=== PATIENT | female | born 1975 | race Hispanic/Latino ===

== ENCOUNTER 2016-06-06 07:17 | Inpatient (IN) | payer MEDICAID ==
[~2016-06-06] VITALS: Ht 154.9 cm; Wt 81.2 kg
[2016-06-06] MEDS ORDERED: Ondansetron 2 mg/mL 2 mL Inj IVPUSH ONE ×2 (07:18→12:30)
[2016-06-06] MEDS ORDERED: Lactated Ringer's 1,000 ML IV ONE (07:18)
[2016-06-06] MEDS ORDERED: Oxytocin 10 Unit/mL Inj IV ONE (07:18)
[2016-06-06] MEDS ORDERED: Lactated Ringer's 1,000 ML IV SCH ×2 (07:35→11:37)
[2016-06-06] MEDS ORDERED: Carboprost 250 mCg/mL Inj IM PRN ×2 (07:35→11:40)
[2016-06-06] MEDS ORDERED: Hemorrhage Kit, Post Partum XX ONE ×2 (07:35→11:40)
[2016-06-06] MEDS ORDERED: CeFAZolin Inj 2 GM in IV Premix 1 EACH IV ONE (07:35)
[2016-06-06] MEDS ORDERED: Methylergonovine 0.2 mg/mL Inj IM PRN ×2 (07:35→11:40)
[2016-06-06] MEDS ORDERED: Sodium Citrate-Citric Acid 15 mL Solution PO SCH (07:35)
[2016-06-06] MEDS ORDERED: Oxytocin 10 Unit/mL Inj IM PRN ×2 (07:35→11:40)
[2016-06-06 08:24] LABS: Mean Corpuscular Hemoglobin 29.5 pg (27.0-35.0); Mean Corpuscular Volume 88.6 fL (81-100)
[2016-06-06] MEDS ORDERED: Oxytocin 10 Unit/mL Inj ONE ×2 (09:00→19:26)
[2016-06-06] MEDS ORDERED: Phenylephrine/NS 100 mCg/mL 10 mL Syringe IVPUSH ONE ×2 (09:00→19:26)
[2016-06-06] MEDS ORDERED: Ondansetron 2 mg/mL 2 mL Inj ONE ×2 (09:00→19:26)
[2016-06-06] MEDS ORDERED: EPHEDrine/NS 5 mg/mL 5 mL Syringe ONE ×2 (09:00→19:26)
[2016-06-06] MEDS ORDERED: EPHEDrine Sulfate 50 mg/mL Inj IVPUSH PRN (10:05)
[2016-06-06] MEDS ORDERED: fentaNYL-PF 50 mCg/mL 2 mL Inj IVPUSH PRN (10:05)
[2016-06-06] MEDS ORDERED: Atropine 0.4 mg/mL Inj IV PRN (10:05)
--- NOTE | 2016-06-06 10:22 | HP ---
[address] [address] HISTORY AND PHYSICAL PATIENT: ROSS MATA : 1975 MR#: [id number] ADMIT: 06/06/2016 JOB ID: [id number] CHIEF COMPLAINT: The patient presented for scheduled repeat section and tubal ligation. HISTORY OF PRESENTING ILLNESS: This is a 40-year-old 6, para 3-0-2-3 at 39 weeks and five days with expected date of delivery of June 09, 2016 dated by a 33 week ultrasound for an unknown last menstrual period. The patient presented today for a scheduled repeat section. The patient denies any complaints. The patient confirmed good movement. No vaginal bleeding. No loss of fluid and no contractions. complicated with: 1. Late transfer of care from [facility] at 32 weeks. 2. History of Zika virus exposure, labs drawn and negative (copy of result is in paper chart) 3. Advanced maternal age. 4. deliveries x3. 5. Multiparity, desires permanent sterilization. Sterilization consent was signed May 01, 2016. REVIEW OF SYSTEM: Comprehensive review of system is negative except for the items mentioned in the history of presenting illness. PAST MEDICAL HISTORY: Noncontributory. PAST SURGICAL HISTORY: 1. Left ankle surgery. 2. deliveries x3. 3. Dilatation and curettage x1. PAST OBSTETRIC HISTORY: 1. First was in 1995. Term delivery via section under epidural anesthesia. Outcome is a female , 3800 g. Indication for section was arrest of dilatation. 2. The second was 2000. Term delivery via repeat section. Outcome female 3600 g with no complications. 3. Third was 2002. Term delivery via repeat section. Outcome female infant 3600 g with no complications. All three sections were done at [facility]. 4. Fourth in 2012 was a spontaneous at approximately eight weeks with no D and C or medication needed. 5. Fifth was 2013, a spontaneous at eight weeks with need for D and C. 6. Sixth is the current . GYNECOLOGIC HISTORY: Last menstrual period unknown. Last Pap smear May 03, 2016 within normal limits and HPV negative. Denies history of sexually transmitted infections. Chlamydia and gonorrhea screen was negative April 22, 2016. FAMILY HISTORY: Mother is diabetic and has hypertension. Father secondary to [place] at age 53. Siblings healthy. Children healthy. SOCIAL HISTORY: Denies alcohol or illicit drug abuse. MEDICATIONS: vitamins. PHYSICAL EXAMINATION: Vital signs: Blood pressure 120/76, heart rate 82, heart tones baseline 135, moderate variability, positive accelerations, no decelerations. Category 1 tracing. Contractions irregular every 9-15 minutes. General: Alert, oriented to time, place and person. Head: Normocephalic, atraumatic. Neck: Supple. Chest: Equal air entry bilaterally. No added sounds. Cardiovascular: S1 plus S2 plus 0. Abdomen: Gravid. No tenderness. Lower extremities: No edema. Positive deep tendon reflexes +2 bilaterally. LABORATORIES: labs O positive, rubella immune, RPR nonreactive, hepatitis B surface antigen nonreactive, HIV non reactive, antibody screening negative. Culture within normal limits. April 22, 2016. Diabetes screen negative April 22, 2016 at 32 weeks. Pap smear within normal limits May 03, 2016 and HPV negative. Chlamydia and gonorrhea screening negative April 22, 2016. GBS screening negative on May 23, 2016. Today's labs: White blood cells 7.8, red blood cells 4.4, hemoglobin 13, hematocrit 39%, platelets 191. Type and screen pending. DIAGNOSTIC: 1. Ultrasound on April 23, 2016. Estimated gestational age was 33 weeks plus two days with MADDISON of June 09, 2016. 2. Repeat ultrasound at the [facility] on May 01, 2016, MADDISON was June 06, 2016. Final MADDISON is June 09, 2016. Placenta anterior fundal with no abnormal placentation. 3. Ultrasound on May 28, 2016: Estimated weight 3485 g at 60th percentile from the MADDISON of June 09, 2016. ASSESSMENT: This is a 40-year-old 6, para 3-0-2-3 at 39 weeks and 5 days based on MADDISON of June 09, 2016 x33 week ultrasound with history of previous three sections. Desires repeat section and multiparity and desires sterilization. Sterilization consent was signed May 01, 2016. PLAN: Risks, benefits and alternatives of repeat section were discussed with the patient in detail. Risks including and not limited to, risk of infection, bleeding, injury to other organs, risk of anesthesia, risk of blood transfusions and risk of infant laceration. The patient desires to proceed with repeat section as scheduled. Tubal ligation risks, benefits and alternatives were reviewed with the patient in details which include and not limited to, tubal ligation is permanent procedure, risk of failure is 1 in 200 with risk of ectopic in third of the failed cases. Alternatives including LARC and male sterilization were also discussed. All questions were answered. Potential difficulty of a tubal ligation was also explained secondary to previous section and possible adhesions was also discussed with the patient. All questions were answered. Will proceed with the procedure as planned. Snow Maker was present for the H&P and consenting. EDNA
[2016-06-06] MEDS ORDERED: Sodium Chloride LOK Flush 10 mL Syringe IVFLUSH PRN (11:40)
[2016-06-06] MEDS ORDERED: LANOlin HPA 7 Gm Ointment TOPICAL PRN (11:40)
[2016-06-06] MEDS ORDERED: hydrOXYzine Pamoate 25 mg Capsule PO PRN (11:40)
[2016-06-06] MEDS ORDERED: Oxytocin 30 Units/500 mL LR 30 UNITS in IV Premix 1 EACH IV PRN ×2 (11:40→12:35)
--- NOTE | 2016-06-06 12:20 | PCM.HPANE ---
Patient Data Date of Service: Jun 06, 2016 (08) Surgeon Admitting Provider:Roxanne Dinh MD Attending Provider:Roxanne Dinh MD Primary Care Physician:Alla Obando MD Other Provider:Mona Soni Anesthesia Reason for Visit repeat repeat Ht/WT & BMI Height (Feet): 5 Height (Inches): 1 Body Mass Index Allergies Coded Allergies: No Known Allergies (Unverified Allergy, Unknown, 08/26/14) Past Anesthesia History Anesthesia History: Denies:: Abnormal Airway, Anesthesia Reactions, Fam Anesthesia Reaction, Fam Malignant Hypertherm, Malignant Hyperthermia MRSA MRSA: No Medications Hypertension Medication: No Home Meds Incl Beta Enrrique: No History History of ENT Problems?: No Teeth Condition: Tooth Decay Hx of Heart Problems?: No Cardiovascular History: Denies:: Chest Pain Other Cardiac History: no sob Hx of Respiratory Problem?: No Hx Neurologic Problems?: No Neurological History: Denies:: CVA Peripheral Neuropathy Seizures Hx of GI Problems?: No Gastrointestinal History: Denies:: Gastroesphageal Reflux Hx of Problems?: No Genitourinary History: Denies:: HX of Hemodialysis HX of Peritoneal Dialysis: No Female Hx: Positive for:: Currently () Skin History: Denies:: History Skin Disorders? Pressure Ulcers Hx Musculoskeletal Problems?: No Hx of Psycho/Social Problems?: No Hx Surgeries?: Yes ( section due to failure to progress - no complications - vertical incision) Hx Any Other Health Problems?: No Hx Diabetes: No Hx Alcohol Use: NoHx Substance Use: No Smoking Status: Never Smoker Have You Smoked inLast 12 mo: No Stop/Bang Treated for Sleep Apnea?: No Do You Have a CPAP Machine?: No S-Snoring: Do You Snore Loudly: No T-Tired: feel tired, fatigued: No O-Obsered: Observed not breath: No P-Blood Pressure: treated: No B- Body Mass Index > 35 kg/m2: No A- Age over 50: No N- Neck Large Circumference: No G- Gender Male: No LUPE Risk Assessment: Low Risk, <3 Yes Risk Assessment Category Category 1A: Patient has history of documented sleep apnea, and HAS NOT received any narcotic, sedative or anesthesia administration during this stay. Category 1B: Patient has history of documented sleep apnea, and HAS received any narcotic , sedative or anesthesia administration during this stay Category 2: Patient has SUSPECTED Obstructive Sleep Apnea, and HAS received any narcotic , sedative or anesthesia administration during this stay. Category 3: Patient has SUSPECTED Obstructive Sleep Apnea and HAS NOT received narcotic, sedative or anesthesia administration during this stay. Category 4: Outpatient in Procedural Areas with known sleep apnea or who screen positive for High Risk via the STOP/BANG questionnaire. Exam Exam General Appearance: Alert, Oriented X3, Cooperative, No Acute Distress HEENT/AIRWAY: MP 2, Neck Movement (FROM), Mouth Opening (>3), Other (TMD3) Lungs: Clear to Auscultation Heart: Exam Unremarkable, Regular Rate/Rhythm, Normal S1, Normal S2, No Murmurs /Rubs/Gallops Additional Information Back no signs of infection Meds/Labs/Diagnostics Admission Meds Current Medications Lactated Ringer's (Lr) 1,000 ml @ 125 mls/hr Q8H IV Last administered on t 08:37; Start 06/06/16 at 07:35; Stop 06/06/16 at 15:34 Labs Test 06/06/16 08:00 White Blood Count 7.8th/mm3 (3.8-10.1) Red Blood Count 4.40mil/mm3 (3.90-5.20) Hemoglobin 13.0g/dL (12.0-15.6) Hematocrit 39.0% (35.0-46.0) Mean Corpuscular Volume 88.6fL (81-100) Mean Corpuscular Hemoglobin 29.5pg (27.0-35.0) Mean Corpuscular Hemoglobin Concent 33.3% (32.0-37.0) Red Cell Distribution Width 14.6% (12.3-15.4) Platelet Count 191bil/L (150-400) Plan Impression Patient chart reviewed, patient interviewed and anesthestic plan with risks, benefits, and alternatives discussed, and informed consent obtained. ASA Physical Status: ASA2 Mod Systemic Disease Anesthetic Plan: SAB Bene/Risks/Altern/Consents: Yes HP Complete Prior to Induction: Yes Papito Patel MD Jun 06, 2016 12:20
--- NOTE | 2016-06-06 12:29 | PCM.ANEP1 ---
Post Anesthesia Phase 1 PACU Phase 1 Assessment Date of Service: Jun 06, 2016 (0830) Anesthetic Administered: SAB Level of Alertness: Awake, talking WEBB's with Equal Strength: No (residual motor/sensory blockade in expected distribution) Pain: No Pain Scale Score: 0 Nausea or Vomiting: No Oxygen Delivery: Room Air Lungs: Clear to Auscultation Papito Patel MD Jun 06, 2016 12:29
[2016-06-06] MEDS ORDERED: Promethazine 12.5 mg/50 mL-NS 12.5 MG in IV Premix 1 EACH IV ONE (12:30)
[2016-06-06] MEDS ORDERED: Ondansetron 8 mg ODT Tablet PO PRN (12:30)
--- NOTE | 2016-06-06 12:30 | PCM.ANEP2 ---
Post Anesthesia Evaluation ASA/CMS Post Anesthesia VS in Patient's Normal Range?: Yes Resp Stable; Airway Patent?: Yes CV Function & Hydration Stable: Yes Mental Status Recovered?: Yes Pain control Satisfactory?: Yes N/V Control Satisfactory?: Yes Papito Patel MD Jun 06, 2016 12:29
[2016-06-06] MEDS: Acetaminophen IV 1,000 MG in IV Premix 1 EACH IV PRN ×2 (12:50→19:15)
[2016-06-06] MEDS ORDERED: Promethazine Inj 12.5 MG in 0.9% Sodium Chloride 50 ML IV ONE (13:30)
--- NOTE | 2016-06-06 14:10 | OP ---
[address] [address] OPERATIVE REPORT PATIENT: ROSS MATA : 1975 MR#: [id number] ADMIT: 06/06/2016 JOB ID: [id number] DATE OF SURGERY: 06/06/2016 PREOPERATIVE DIAGNOSIS(ES): 1. Term intrauterine at 39 weeks and 5 days gestation. 2. Previous three deliveries. 3. Multiparity, desires permanent sterilization. POSTOPERATIVE DIAGNOSIS(ES): 1. Term intrauterine at 39 weeks and 5 days gestation. 2. Previous three deliveries. 3. Multiparity, desires permanent sterilization. PROCEDURES: 1. Repeat low transverse section. 2. Bilateral tubal ligation with partial salpingectomy. COMPLICATIONS: None. IMPLANTS: None. SURGEON: Alla Obando MD MASCARA MOLDER: Roxanne Dinh MD (certified surgical assistant was needed for retractions and exposure and safe delivery of the infant). ESTIMATED BLOOD LOSS: 700 mL. IV FLUIDS: 1600 mL crystalloid fluid. URINE OUTPUT: 150 mL with some blood stained urine at the end of the procedure. SPECIMENS: Right and left segments of fallopian tubes. FINDINGS: Uterus was enlarged with irregular surface possibly secondary to multiple intrauterine fibroids. No distinct fibroid was palpable externally except one small (1 cm) submucosal fibroid was palpable in the intrauterine cavity. Normal tubes and ovaries. Clear amniotic fluid. Male infant delivered in cephalic presentation. Weight 3591 g ,equivalent to 7 pounds 15 ounces. Apgars 9 at one minute and 9 at five minutes. There was no nuchal cord and amniotic fluid was clear. INDICATION: This is a 40 years old 6, para 3-0-2-3, with a history of previous three deliveries presented at 39 weeks and 5 days for a scheduled repeat section. Expected date of delivery is June 09, 2016 dated by 33 week ultrasound that confirmed by 34 week ultrasound. The patient also interested in tubal ligation and sterilization. Informed consent was signed at the office on May 01, 2016. Patient was counseled again prior to the procedure, regarding risks, benefits and alternatives for female sterilization, LARC and male sterilization. All the questions were answered. The patient desires to proceed with a repeat delivery and bilateral tubal ligation as planned. PROCEDURE: After informed consent was obtained, the patient was taken to the operation room. She was placed under adequate spinal anesthesia, then she was placed in dorsal supine position with left lateral tilt. She was prepped and draped in the usual sterile fashion for abdominal procedure. A Pfannenstiel skin incision was made at the level of two fingerbreadths above the symphysis pubis. Prior to the procedure the type of skin incision was discussed with the patient. The patient elected to go with a low transverse incision and not to go through the previous low vertical incision that she had for the previous three sections. The skin incision was carried down to the fascia. The initial fascial incision was made with a scalpel and was extended bilaterally and curvilinear with curved Mayos. The inferior aspect of the fascial layer was elevated on either side of the midline with Richar clamps and the rectus muscles were dissected off with blunt and sharp dissection. Attention was turned to the superior aspect of the fascia where it was grasped in either side of the midline with Richar clamps, and was dissected off the rectus muscles with blunt and sharp dissection. The rectus muscles were in the midline and the peritoneum was entered bluntly and area cleared of vascularity. The peritoneal incision was extended with Metzenbaum scissors. Then with bilateral gentle traction bladder blade was placed and a bladder flap was created and the bladder blade was repositioned to protect the bladder. A low transverse uterine incision was made with a scalpel and was extended bilaterally with bandage scissors guided by the surgeon's finger. Then amniotomy was performed with Allis clamps. Clear fluid was noted. A cephalic presented was delivered with the assistance of fundal pressure. No nuchal cord was noted. Delayed cord clamp was performed after 1 minute. Cord blood was collected for gases. The was handed off to the awaiting ICU team. The placenta was delivered manually. Uterus was exteriorized, cleared of any remaining clots and debris. The uterine incision was closed with 0-Vicryl in a running, interlocking fashion. A second imbricating layer of 0 Monocryl was made with good hemostasis. At the upper edge of the incision in the right side, a small hematoma was noted. A [id number] stitch was placed around and through the hematoma with good hemostasis. The attention was turned to the tubal ligation part of the procedure where the right tube was identified and traced to the fimbria. An area clear of vascularity in the mesosalpinx was identified and a window was created with Bovie cautery. Then, the middle segment of the tube was double ligated at either end of approximately 4 cm length of the middle segment of the tube that was excised. The remaining stump of the tube was cauterized with Bovie cautery for hemostasis. Attention was turned to the left fallopian tube. An area clear of vascularity in the middle segment of the tube was identified and a window was created with Bovie cautery. The 4 cm middle segment of the tube was double ligated and was excised. The remaining stump of the tube was cauterized with Bovie cautery for hemostasis. Hemostasis was ensured bilaterally. The posterior cul-de-sac was cleared of any remaining clots and debris, then was thoroughly irrigated. The uterus was placed back into the peritoneal cavity. The lateral gutters were as examined and cleared of any remaining clots and debris. Hemostasis was ensured in both fallopian tubes. The uterine incision was examined. Some superficial bleeding serosa was noted that was cauterized. Hemostasis was ensured. Then, the rectus muscles were approximated in the midline with simple interrupted stitches using 2-0 chromic. The fascia was closed with 0-Vicryl in a running fashion. The subcutaneous layer was approximated with simple interrupted stitches of 2-0 chromic. The skin was closed with 4-0 Vicryl in subcuticular fashion. Steri-Strips were applied followed by a bandage. All instruments, needles and sponge counts were correct x2. The patient and were transferred to the room for recovery. Alla Louie MD was present and scrubbed for the entire procedure. EDNA
[2016-06-06] MEDS ORDERED: Morphine PF 1 mg/mL 10 mL Inj ONE (19:26)
[2016-06-06] MEDS: Dextrose 5% Lactated Ringer's 1,000 ML IV SCH (22:47)
[2016-06-07] MEDS: Dextrose 5% Lactated Ringer's 1,000 ML IV SCH (04:25)
[2016-06-07] MEDS: Acetaminophen IV 1,000 MG in IV Premix 1 EACH IV PRN (05:51)
[2016-06-07 07:54] LABS: Mean Corpuscular Hemoglobin 29.6 pg (27.0-35.0); Mean Corpuscular Volume 91.2 fL (81-100)
--- NOTE | 2016-06-07 09:27 | PCM.PNOBPP ---
Subjective Date of Service Jun 07, 2016 Post : Repeat [place]re[place] Delivery Subjective This is a 40-year-old 6, para 4-0-2-4 post day 1 after repeat section and tubal ligation. was complicated by late transfer of care from [facility] at 32 weeks, history of Zika virus exposure with negative labs, advanced maternal age. section and tubal ligation were without complication there as minimal blood tinged urine after surgery. Patient received IV fluids overnight due to low urine output. Urine output has improved and urine is no longer blood tinged. Pain is currently well controlled with IV Tylenol will switch to PO pain medications. Patient out of bed this morning without difficulty. Lochia: Normal Pain Management: Good Pain Control (currently with IV tylenol. Will switch to oral) Gastrointestinal: Passing Flatus Postop Activity: Ambulating in Room Only Labs RPR nonreactive, hepatitis B surface antigen nonreactive, HIV non reactive, antibody screening negative. Culture within normal limits. Diabetes screen negative April 22, 2016 at 32 weeks. Pap smear within normal limits May 03, 2016 and HPV negative. Chlamydia and gonorrhea screening negative March. Group B Strep Results: Negative Rubella: Immune Blood Type: O RH Type: Positive Labs Laboratory Tests 06/07/16 07:35: Exam Vital Signs Vital Signs: VS reviewed, stable Exam Abdomen: Uterus is, Fundus firm Perineum: Intact : UOP has been (low. Improved this morning with 150 mls in last 2 hrs. ), Fernandes catheter Extremities: Edema 1+ Lungs: Clear to Auscultation, Normal Air Movement Heart: Regular Rate/Rhythm, Normal S1, Normal S2 General: Alert, Oriented X3, Cooperative Surgical Wound : Wound Location/Description Low transverse incision Incision General Appearence: Steri Strips, Intact, Well Approximated, No Discharge OB Post Assessment/Plan Assessment 1. 40-year-old 6, para 4-0-2-4 post day 1 after repeat section and tubal ligation. 2. Advanced maternal age. 3. Low urine output, improving. Pain Management: Currently with IV Tylenol will switch to PO pain medication (Percocet). Pain Evaluation: Adequate Pain Control Post plan: Continue routine post care Plan: 1. Continue routine post- care. 2. Patient to be up and ambulating. 3. Saline lock IV and continue to monitor UOP closely. 4. BMP pending to evaluate kidney function. 5. IV Tylenol stopped. Will use Percocet for pain control. 6. General Diet as tolerated. 7. Discharge home tomorrow pending UOP and kidney function. Attending Statement The patient was seen and examined together with Dr. Marcin Beasley on 2016 and I agree with the history, exam and plan as outlined in the note above. MARCIN BEASLEY DO Jun 07, 2016 07:55 Rebekah Meza MD Jun 09, 2016 09:44
[2016-06-07] MEDS: Ascorbic Acid 500 mg Tablet PO SCH (12:30)
[2016-06-07] MEDS: oxyCODONE-Acetamin 5-325 mg Tablet PO PRN ×3 (12:32→22:50)
[2016-06-07] MEDS: 0.9% Sodium Chloride 1,000 ML IV SCH ×2 (18:30→20:15)
--- NOTE | 2016-06-07 21:34 | NUR ---
Shift note Patient up and about in room today. She had lots of visitors, so she did not walk the halls, but reports that her pain is well controlled. Voiding independently, independent with care of baby. Vitals stable, incision clean and dry, steri strips intact. Breast feeding going well per patient report.
[2016-06-08] MEDS: oxyCODONE-Acetamin 5-325 mg Tablet PO PRN ×3 (06:50→16:17)
--- NOTE | 2016-06-08 09:16 | PCM.DC.OB ---
Obstetrical Discharge Summary Date of Service Jun 08, 2016 Date of hospital admission Jun 06, 2016 at 07:17 Date of Discharge: Jun 08, 2016 Providers Admitting Physician: Roxanne Dinh MD Primary Care Physician: Joe Hodge MD Attending Physician: Joe Hodge MD Diagnosis at Time of Discharge 1. Status post Repeat low transverse section and bilateral tubal ligation with partial salpingectomy on 06/06/2016. 2. Post anemia. Problems: Hospital Course: DELIVERY DISCHARGE SUMMARY his is a 40-year-old 6, now para 4-0-2-4 1. Status post Repeat low transverse section and bilateral tubal ligation with partial salpingectomy. on 06/06/2016. 2. Post anemia. COMPLICATED WITH: 1. Late transfer of care from [facility] at 32 weeks. 2. History of Zika virus exposure, labs drawn and negative (copy of result is in paper chart) 3. Advanced maternal age. 4. deliveries x3. 5. Multiparity, desires permanent sterilization. Sterilization consent was signed May 01, 2016. OUTCOME: Male delivered in cephalic presentation. Weight 3591 g , equivalent to 7 pounds 15 ounces. Apgars 9 at one minute and 9 at five minutes. There was no nuchal cord and amniotic fluid was clear. DISCHARGE DAY EXAM: Postoperative day number 2, patient is ambulating, tolerating regular diet without nausea or vomiting and voiding without difficulty. Pain was well controlled. No chest pain, no headache or change in vision. VS: BP 107/68 HR 83 Respirations 16 SaO2 98 on RA Temp 36.2 General: Alert, Oriented X3 Lungs: Clear to Auscultation, Clear to Percussion Heart: Regular Rate/Rhythm, Normal S1, Normal S2 Abdomen: Fundus firm Surgical Wound : Incision General Appearance: Steri Strips, Sutures, Intact, Well Approximated, Incision Healing, No Erythemia, No Discharge Extremities: No tenderness/swelling, Edema 1+ Lochia: normal. LABS: Laboratory Tests 72 Hours Test 06/06/16 08:00 06/07/16 07:35 06/07/16 10:45 06/08/16 09:37 White Blood Count 7.8th/mm3 (3.8-10.1) 11.0th/mm3 (3.8-10.1) 9.8th/mm3 (3.8-10.1) Red Blood Count 4.40mil/mm3 (3.90-5.20) 3.18mil/mm3 (3.90-5.20) 3.32mil/mm3 (3.90-5.20) Hemoglobin 13.0g/dL (12.0-15.6) 9.4g/dL (12.0-15.6) 9.9g/dL (12.0-15.6) Hematocrit 39.0% (35.0-46.0) 29.0% (35.0-46.0) 30.5% (35.0-46.0) Mean Corpuscular Volume 88.6fL (81-100) 91.2fL (81-100) 91.9fL (81-100) Mean Corpuscular Hemoglobin 29.5pg (27.0-35.0) 29.6pg (27.0-35.0) 29.8pg (27.0-35.0) Mean Corpuscular Hemoglobin Concent 33.3% (32.0-37.0) 32.4% (32.0-37.0) 32.5% (32.0-37.0) Red Cell Distribution Width 14.6% (12.3-15.4) 14.6% (12.3-15.4) 14.9% (12.3-15.4) Platelet Count 191bil/L (150-400) 158bil/L (150-400) 174bil/L (150-400) Sodium Level 138mEq/L (134-144) 139mEq/L (134-144) Potassium Level 3.8mEq/L (3.5-5.2) 3.7mEq/L (3.5-5.2) Chloride Level 104mEq/L (97-108) 103mEq/L (97-108) Carbon Dioxide Level 22mmol/L (18-29) 23mmol/L (18-29) Blood Urea Nitrogen 5mg/dL (6-24) 7mg/dL (6-24) Creatinine 0.38mg/dL (0.57-1.00) 0.38mg/dL (0.57-1.00) Estimat Glomerular Filtration Rate 267mL/min (>59) 267mL/min (>59) Glucose Level 109mg/dL (60-99) 89mg/dL (60-99) Calcium Level 7.8mg/dL (8.5-10.1) 7.6mg/dL (8.5-10.1) labs: O positive, rubella immune, RPR nonreactive, hepatitis B surface antigen nonreactive, HIV non reactive, antibody screening negative. Culture within normal limits. April 22, 2016. Diabetes screen negative April 22, 2016 at 32 weeks. Pap smear within normal limits May 03, 2016 and HPV negative. Chlamydia and gonorrhea screening negative April 22, 2016. GBS screening negative on May 23, 2016. Disposition: home. Discharge Condition: stable. Diet Discharge Diet: No restrictions Activity Discharge Activity-General: Pelvic Rest for 6 weeks (no sex, no tampon and no douching), Balance rest and activity, No lifting >10 pounds for 4-6 weeks Dressing and Incisional Care Hygiene: May shower, Wash incision with soap & water (then keep incision dry ) Follow Up Plan Follow-up Provider (F9): Joe Hodge MD Follow-up appointment: Weeks (Two) Call your provider for: Fever or Chills, Shortness of breath, Heavy vaginal bleeding, Heavy bleeding, Epigastric pain, Excessive constipation, Vaginal discomfort, Red painful breasts, Other (leg swelling, pain, nausea and vomiting , headache or change in vision.) ([Lanolin]) 2 APPLIC/GM OINT 1 APPLIC TOPICAL DIRECTED PRN PRN for breast care Prescribed by: JOE HODGE MD ([Ascorbic Acid]) 500 MG TABLET 500 MG PO daily Prescribed by: JOE HODGE MD Docusate Sodium (Colace) 100 Mg Capsule 100 MG PO BID PRN PRN For Constipation Prescribed by: JOE HODGE MD Ferrous Sulfate (Feosol) 325 Mg Tablet 325 MG PO daily Prescribed by: JOE HODGE MD Ibuprofen (Ibuprofen) 600 Mg Tablet 600 MG PO QID PRN PRN For Pain Prescribed by: JOE HODGE MD oxyCODONE-Acetaminophen 5-325 mg (oxyCODONE-Acetaminophen 5-325 mg) 1 Each Tablet 1-2 TAB PO Q4H PRN PRN For Pain Prescribed by: MD Topher JAMES Omaima A MD Jun 07, 2016 19:03
--- NOTE | 2016-06-08 09:16 | PCM.DIOB ---
Obstetrical Disch Instruction Date of Service: Jun 08, 2016 Dates of Hospitalization Date of Hospital Admission Jun 06, 2016 at 07:17 Providers Admitting Physician: Roxanne Dinh MD Primary Care Physician: Alla Obando MD Attending Physician: Alla Obando MD Discharge Diagnosis Discharge Diagnosis 1. Status post Repeat low transverse section and bilateral tubal ligation with partial salpingectomy. on 06/06/2016. 2. Post anemia. Post Operative diagnosis Disposition: home. Discharge Condition: stable. Diet Discharge Diet: No restrictions Activity Discharge Activity-General: Pelvic Rest for 6 weeks (no sex, no tampon and no douching), Balance rest and activity, No lifting >10 pounds for 4-6 weeks Dressing and Incisional Care Hygiene: May shower, Wash incision with soap & water (then keep incision dry ) Follow Up Plan Follow-up Provider (F9): Alla Obando MD Follow-up appointment: Weeks (Two) Call your provider for: Fever or Chills, Shortness of breath, Heavy vaginal bleeding, Heavy bleeding, Epigastric pain, Excessive constipation, Vaginal discomfort, Red painful breasts, Other (leg swelling, pain, nausea and vomiting , headache or change in vision.) Problems: Alla Obando MD Jun 07, 2016 19:02
[2016-06-08] MEDS ORDERED: Ascorbic Acid PO (09:21)
[2016-06-08] MEDS ORDERED: Lanolin TOPICAL (09:21)
[2016-06-08] MEDS ORDERED: DOCU-41 PO (09:22)
[2016-06-08] MEDS ORDERED: FERR-74 PO (09:22)
[2016-06-08] MEDS ORDERED: OXYC1TAB24 PO (09:22)
[2016-06-08] MEDS: Ascorbic Acid 500 mg Tablet PO SCH (09:27)
[2016-06-08] MEDS ORDERED: IBUP-1827 PO (09:31)
[2016-06-08 09:45] LABS: Mean Corpuscular Hemoglobin 29.8 pg (27.0-35.0); Mean Corpuscular Volume 91.9 fL (81-100)
--- NOTE | 2016-06-08 11:54 | PCM.PNOBPP ---
Subjective Date of Service Jun 08, 2016 Post : Repeat Ceserean Delivery Subjective Postoperative day number 2, patient is ambulating, tolerating regular diet without nausea or vomiting and voiding without difficulty. Pain was well controlled. No chest pain, no headache or change in vision. C/O of chest tightness. VS: BP 95/57 HR 78 Respirations 18 SaO2 96% on RA Temp 36.7 General: Alert, Oriented X3 Lungs: Clear to Auscultation. Heart: Regular Rate/Rhythm, Normal S1, Normal S2 Abdomen: Fundus firm Surgical Wound : Incision General Appearance: Steri Strips, Sutures, Intact, Well Approximated, Incision Healing, No Erythemia, No Discharge Extremities: No tenderness/swelling, Edema 1+ Lochia: normal. LABS: Laboratory Tests 72 Hours Test 06/06/16 08:00 06/07/16 07:35 06/07/16 10:45 06/08/16 09:37 White Blood Count 7.8th/mm3 (3.8-10.1) 11.0th/mm3 (3.8-10.1) 9.8th/mm3 (3.8-10.1) Red Blood Count 4.40mil/mm3 (3.90-5.20) 3.18mil/mm3 (3.90-5.20) 3.32mil/mm3 (3.90-5.20) Hemoglobin 13.0g/dL (12.0-15.6) 9.4g/dL (12.0-15.6) 9.9g/dL (12.0-15.6) Hematocrit 39.0% (35.0-46.0) 29.0% (35.0-46.0) 30.5% (35.0-46.0) Mean Corpuscular Volume 88.6fL (81-100) 91.2fL (81-100) 91.9fL (81-100) Mean Corpuscular Hemoglobin 29.5pg (27.0-35.0) 29.6pg (27.0-35.0) 29.8pg (27.0-35.0) Mean Corpuscular Hemoglobin Concent 33.3% (32.0-37.0) 32.4% (32.0-37.0) 32.5% (32.0-37.0) Red Cell Distribution Width 14.6% (12.3-15.4) 14.6% (12.3-15.4) 14.9% (12.3-15.4) Platelet Count 191bil/L (150-400) 158bil/L (150-400) 174bil/L (150-400) Sodium Level 138mEq/L (134-144) 139mEq/L (134-144) Potassium Level 3.8mEq/L (3.5-5.2) 3.7mEq/L (3.5-5.2) Chloride Level 104mEq/L (97-108) 103mEq/L (97-108) Carbon Dioxide Level 22mmol/L (18-29) 23mmol/L (18-29) Blood Urea Nitrogen 5mg/dL (6-24) 7mg/dL (6-24) Creatinine 0.38mg/dL (0.57-1.00) 0.38mg/dL (0.57-1.00) Estimat Glomerular Filtration Rate 267mL/min (>59) 267mL/min (>59) Glucose Level 109mg/dL (60-99) 89mg/dL (60-99) Calcium Level 7.8mg/dL (8.5-10.1) 7.6mg/dL (8.5-10.1) Lochia: Normal Pain Management: Good Pain Control (currently with IV tylenol. Will switch to oral) Gastrointestinal: Passing Flatus Postop Activity: Ambulating in Room Only Group B Strep Results: Negative Rubella: Immune Blood Type: O RH Type: Positive Labs Laboratory Tests 06/08/16 09:37: White Blood Count 9.8, Red Blood Count 3.32, Hemoglobin 9.9, Hematocrit 30.5, Mean Corpuscular Volume 91.9, Mean Corpuscular Hemoglobin 29.8, Mean Corpuscular Hemoglobin Concent 32.5, Red Cell Distribution Width 14.9, Platelet Count 174 OB Post Assessment/Plan Assessment 1. 40-year-old 6, para 4-0-2-4 post day 2 after repeat section and tubal ligation. 2. Advanced maternal age. 3. Possible early atelectasis, encouraged ambulation and Respiratory therapy will instruct patient in using spirometer. Pain Management: possible discharge later d today if patient feeling better after RT and ambulation. Pain Evaluation: Adequate Pain Control Post plan: Continue routine post care Plan: 1. Continue routine post- care. 2. Patient to be up and ambulating. 3. Saline lock IV and continue to monitor UOP closely. 4. BMP pending to evaluate kidney function. 5. IV Tylenol stopped. Will use Percocet for pain control. 6. General Diet as tolerated. 7. Discharge home tomorrow pending UOP and kidney function. Alla Obando MD Jun 08, 2016 11:49
[2016-06-08] MEDS ORDERED: Albuterol 2.5 mg/3 mL Inhalation Solution NEB PRN (11:55)
[2016-06-08 15:20] VITALS: PULSE 87; RESP 16; O2SAT 98
[2016-06-08 17:56] VITALS: BP 107/68; PULSE 83; RESP 16
--- NOTE | 2016-06-11 11:25 | PATH ---
SURGICAL PATHOLOGY Attending Physician:Alla Obando CASE STATUS: Signed Out PATIENT NAME: ROSS MATA PID: [id number] : 1975 DATE COLLECTED:06/06/2016 22:14 SPECIMEN: 1: Fallopian Tube, Sterilization 2: Fallopian Tube, Sterilization CLINICAL HISTORY: REPEAT SECTION AND BILATERAL TUBAL LIGATION VIA PARTIAL SALPINGECTOMY 1). RIGHT FALLOPIAN TUBE 2). LEFT FALLOPIAN TUBE FINAL DIAGNOSIS: 1. 2. SEGMENTS OF RIGHT AND LEFT FALLOPIAN TUBE (STERILIZATION PROCEDURE): NO SIGNIFICANT PATHOLOGIC CHANGE. ICD10 CODE Z30.1 GROSS DESCRIPTION: Received are two specimen containers, each labeled with the patient' s name: 1. Received dry in a specimen container, labeled with the patient' s name and "R fallopian tube", is one pink, cylindrical fragment of tissue measuring 1.2 x 0.7 x 0.5 cm. The fragment is divided, and two representative personal service sections are submitted in cassette 1A. 2. Received dry in a specimen container, labeled with the patient' s name and "L fallopian tube", is one pink, cylindrical fragment of tissue measuring 1.0 x 0.5 x 0.4 cm. The fragment is divided, and two representative personal service sections are submitted in cassette 2A. ([id number]) MICRO DESCRIPTION: See diagnosis. ICD-9 CODES: CPT CODES: 1: 45395 2: 06696 Electronically Signed Out Dre Manzano MD [facility] [address], [place] [address] Technical component performed at [facility], [facility] [address], [place], [address]
== END 2016-06-08 19:27 | disposition home or self-care (01) | DRG 766 ==
LOC: FBC 07:17 → EDSTATUS 09:15
PROVIDERS: ADMIT Obstetrics & Gynecology; ATTEND Obstetrics & Gynecology
PROC: 0U7 Female Reproductive System, Dilation (ICD-10-PCS; 2016-06-06)
PROC: 10D00Z1 Extraction of Products of Conception, Low, Open Approach (ICD-10-PCS; principal; 2016-06-06 09:15)
DX: O34.211 Maternal care for low transverse scar from previous cesarean delivery (principal); O90.81 Anemia of the puerperium; Z37.0 Single live birth; Z3A.39 39 weeks gestation of pregnancy; Z30.2 Encounter for sterilization; O09.523 Supervision of elderly multigravida, third trimester

== ENCOUNTER 2016-06-10 01:24 | Emergency (ER) | payer MEDICAID ==
[~2016-06-10 01:24] MED LIST: Ascorbic Acid PO; DOCU-41 PO; FERR-74 PO; IBUP-1827 PO; Lanolin TOPICAL; OXYC1TAB24 PO
[2016-06-10 01:36] VITALS: BP 131/76; PULSE 83; RESP 18; O2SAT 97
[2016-06-10] MEDS ORDERED: 0.9% Sodium Chloride 1,000 ML IV ONE (03:48)
[2016-06-10] MEDS ORDERED: Ondansetron 2 mg/mL 2 mL Inj IVPUSH ONE (03:50)
--- NOTE | 2016-06-10 03:51 | ED.REPORT ---
HPI-General Illness Date of Service Jun 10, 2016 ED Provider: Navjot Covarrubias MD Patient is a A2 40 year old female who is 3 days post presents to the ED after she developed a fever tonight. [facility] to [facility], who sent her to the ED due to a recorded temperature of 37.9C. The patient is also afebrile in the ED. Patient states that she felt febrile and that she experienced chills. Patient denies cough, abdominal pain, nausea, or vomiting. Patient has not taken any of prescribed medications today, as she was in the nursery with her baby. Her only complaint is constipation, with recent narcotic pain medication. This is the patient's 4th . The patient's child is currently under blue lights upstairs due to hyperbilirubinemia. She reports pumping her breast milk, as she is not currently allowed to breastfeed. She reports some mild chest discomfort due to her breast. She denies a redness or a rash. Patient also reports swelling in her legs, stating that she has been sitting and laying down a lot. Patient denies pain in her legs. Nursing Notes Stated Complaint: FEVER, 3 DAYS S/P CSECTION Chief Complaint: General Complaint Nursing Notes Reviewed: Yes Allergies: Coded Allergies: No Known Allergies (Unverified Allergy, Unknown, 08/26/14) Scheduled ([Ascorbic Acid]) 500 MG TABLET 500 MG PO daily Ferrous Sulfate (Feosol) 325 Mg Tablet 325 MG PO daily Scheduled PRN ([Lanolin]) 2 APPLIC/GM OINT 1 APPLIC TOPICAL DIRECTED PRN PRN for breast care Docusate Sodium (Colace) 100 Mg Capsule 100 MG PO BID PRN PRN For Constipation Ibuprofen (Ibuprofen) 600 Mg Tablet 600 MG PO QID PRN PRN For Pain oxyCODONE-Acetaminophen 5-325 mg (oxyCODONE-Acetaminophen 5-325 mg) 1 Each Tablet 1-2 TAB PO Q4H PRN PRN For Pain General Time Seen by MD: 01:59 Chief Complaint 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, 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 Arrived By: Walk-in Sudden in Onset?: No Onset Occurred: 1 - 4 hours ago Symptom Duration: Since onset Severity: Current: No pain currently Severity: Maximum: No pain Recent Healthcare: Recent hospitalization Similar Sx Previous: No Past Medical History Past Medical History A2 Past Surgical History Left foot surgery Reports: (4x) Smoking History Never Smoker Social History Other Social History: Good social support, Lives with children, Local resident Ambulatory Status Independent Review of Systems Full Review of Systems Constitutional: Reports: Chills, Fever (subjective) Respiratory: Denies: Non-productive cough Cardiovascular: Reports: Chest pain (breast pain) GI: Denies: Abdominal pain, Nausea, Vomiting Female: Denies: Musculoskeletal: Reports: Extremity swelling, Denies: Extremity pain Skin: Denies Rash Complete sys rev & neg: except as marked. Physical Exam Vital Signs Vital Signs Date Time Temp Pulse Resp B/P Pulse Ox O2 Delivery O2 Flow Rate FiO2 06/10/16 05:54 37 06/10/16 05:46 37 06/10/16 01:36 37.3 83 18 131/76 97 Room Air Initial VS: Reviewed Skin: Warm, Dry, No cyanosis Neurologic: Alert, Oriented, Nonfocal Psychiatric: Mood/affect normal, Behavior normal, Normal thought content General/Constitutional: Awake, Alert, No acute distress Distress / Hydration: Positive: Dehydration mild Head / Eyes: Normocephalic, PERRL Conjunctiva / Sclera: Positive: Icteric ENT: Airway patent Mouth: Positive: Mucous membranes dry Neck: Supple, Full range of motion Respiratory / Chest: Breath sounds NL, Breath sounds = bilat, No respiratory distress, No rales, No rhonchi, No wheezing Cardiovascular: Heart rate NL, Regular rhythm, Heart sounds NL, No murmurs Abdomen: Soft, Non-tender, No guarding, No rebound surgical wound appears clean and dry, no signs of infection Lower Extremity / Pelvis / MS: Neurologic intact, Vascular intact trace edema of the bilateral lower extremities Interpretation & Diagnostics Lab Results Interpretation Result Diagram: 06/10/16 0305 06/10/16 0305 Test 06/10/16 03:05 06/10/16 05:25 White Blood Count 6.1th/mm3 (3.8-10.1) Red Blood Count 6.14mil/mm3 (3.90-5.20) Hemoglobin 9.5g/dL (12.0-15.6) Hematocrit 28.9% (35.0-46.0) Mean Corpuscular Volume 92.0fL (81-100) Mean Corpuscular Hemoglobin 30.3pg (27.0-35.0) Mean Corpuscular Hemoglobin Concent 32.9% (32.0-37.0) Red Cell Distribution Width 14.3% (12.3-15.4) Platelet Count 218bil/L (150-400) Neutrophils (%) (Auto) 79.1% (40-74) Lymphocytes (%) (Auto) 11.9% (14-46) Monocytes (%) (Auto) 6.1% (4-12) Eosinophils (%) (Auto) 2.5% (0-5) Basophils (%) (Auto) 0.2% (0-3) Hold Purple Top Tube Received (Received) Prothrombin Time 9.7sec (8.1-12.5) Prothromb Time International Ratio 0.91ratio Hold Blue Top Tube Received (Received) Sodium Level 142mEq/L (134-144) Potassium Level 3.7mEq/L (3.5-5.2) Chloride Level 107mEq/L (97-108) Carbon Dioxide Level 21mmol/L (18-29) Blood Urea Nitrogen 7mg/dL (6-24) Creatinine 0.31mg/dL (0.57-1.00) Estimat Glomerular Filtration Rate 338mL/min (>59) Glucose Level 119mg/dL (60-99) Lactic Acid Level 0.9mmol/L (0.4-2.0) Calcium Level 8.0mg/dL (8.5-10.1) Magnesium Level 2.0mg/dL (1.6-2.6) Total Bilirubin 0.3mg/dL (0.0-1.2) Aspartate Amino Transf (AST/SGOT) 72U/L (0-50) Alanine Aminotransferase (ALT/SGPT) 49U/L (0-32) Alkaline Phosphatase 93U/L (25-150) Total Protein 5.3g/dL (6.4-8.4) Albumin 2.7g/dL (3.4-5.0) Lipase 36U/L (13-60) Hold Orange Top Tube Received (Received) Hold Willingham Top Tube Received (Received) Urine Color Dark yellow (YELLOW) Urine Appearance Clear (CLEAR,HAZY) Urine pH 7.0 (5.0-8.0) Urine Specific Magnolia 1.015 (1.003-1.035) Urine Protein Tracemg/dL (NEG,TRACE) Urine Glucose (UA) Negativemg/dL (NEGATIVE) Urine Ketones Negativemg/dL (NEGATIVE) Urine Occult Blood Large (NEGATIVE) Urine Nitrite Negative (NEGATIVE) Urine Bilirubin Negative (NEGATIVE) Urine Urobilinogen Normalmg/dL (NORMAL) Urine Leukocyte Esterase Negative (NEGATIVE) Urine RBC 3-10/hpf (0-2) Urine WBC 0-5/hpf (0-5) Urine Epithelial Cells Occasional/hpf (NONE-MOD) Urine Crystals None seen (NONE SEEN) Urine Bacteria None/hpf (NONE-FEW) Urine Hyaline Casts None/lpf (NONE) Urine Granular Casts None seen (NONE SEEN) Urine Waxy Casts None seen (NONE SEEN) Urine Red Blood Cell Casts None seen (NONE SEEN) Urine White Blood Cell Casts None seen (NONE SEEN) Urine Mucus None seen (None Seen) Urine Trichomonas None seen (NONE SEEN) Urine Yeast None (NONE SEEN) Urine Culture Reflexed Not indicated X-Ray Chest Interpretation Chest Xray Interpretation: Impression: Atelectasis at the bases. No acute process. View: Portable Interpretation / Wet Read by: Wet read ED physician Re-Eval/Medical Decision Med Decision/Clinical Course 40-year-old just post presents with subjective fever. MAXIMUM TEMPERATURE record here was 37.9. She has no specific symptoms to suggest a source. Denies redness or asymmetric tenderness to her breasts, which are engorged but without evidence of infection. She has no cough no evidence of pneumonia. Urine is unremarkable. Wound is clean. Periphery is symmetrically edematous. No shortness of breath or hypoxemia to suggest pulmonary embolus. Discharged in stable condition. Prompt return if fever above thirty-eight, or other focal symptoms develop Source of Hx: Old records Time of Eval: 05:47 Patient Status: Condition improved Re-Evaluation/Progress Note: Patient was informed of the results of her labs. No acute problem identified. Patient understands and agrees with the plan to be discharged home. Discharge instructions and follow-up discussed. All questions were addressed. Return to the ED warnings given. Counseled Regarding: Diagnosis, Lab results, Need for follow-up, When/why to return to ED Discharge & Departure Primary Impression: Postoperative fever Disposition: Home Discharge Condition All VS Reviewed: Yes Condition: Stable Patient Instructions: Fever in Adults (ED) Additional Instructions: Follow your temperature with a thermometer if you feel like you have a fever. Tylenol or Motrin as needed for temperature and discomfort. Follow-up with your doctor in the office. Return if any immediate issues. Siga chambers temperatura con un termmetro si usted siente que tiene fiebre. Tylenol o Motrin segn sea necesario para la temperatura y la incomodidad. Seguimiento con chambers mdico en la oficina. Volver si alguna incidencia inmediata. Referrals: Hieu Del Rio MD (PCP) Scribe Attestation Portions of this note were transcribed by Kasey Kelly. I, Dr. Covarrubias personally performed the history, physical exam and medical decision-making; I reviewed and confirmed the accuracy of the information in the transcribed note. Signed by: Marnie Hooper, 06/10/2016 0547 copies to: Hieu Del Rio MD, Christopher W MD Jun 10, 2016 03:51 Kasey Kelly Jun 10, 2016 03:58
[2016-06-10 04:03] LABS: BASOPHILS % (AUTO) 0.2 % (0-3)
[2016-06-10 04:06] LABS: INR 0.91 ratio
[2016-06-10 04:41] LABS: EOSINOPHILS % (AUTO) 2.5 % (0-5); MONOCYTES % (AUTO) 6.1 % (4-12); Mean Corpuscular Hemoglobin 30.3 pg (27.0-35.0); NEUTROPHILS % (AUTO) 79.1 % (40-74); Platelet Count 218 bil/L (150-400)
[2016-06-10 06:04] LABS: APPEARANCE,URINE CLEAR (CLEAR,HAZY); COLOR,URINE DARK YELLOW (YELLOW); OCCULT BLOOD,URINE LARGE (NEGATIVE); UROBILINOGEN,URINE NORMAL (NORMAL)
--- NOTE | 2016-06-10 08:20 | DRSVH ---
PROCEDURE: X-RAY CHEST, TWO VIEWS ([id number]) INDICATIONS: post op fever TECHNIQUE: 2 views of the chest were acquired. COMPARISON: None. FINDINGS: Surgical changes and devices: None. Lungs and pleura: There are trace posterior bilateral basilar radiopacities best visualized on latera l view. No pleural effusion or pneumothorax. Mediastinum: Mediastinal contours are normal. Heart size is normal. Bones and chest wall: No suspicious bony abnormalities. Soft tissues appear unremarkable. IMPRESSION: Trace, posterior bilateral basilar radiopacities. The findings are most suspicious for de pendent atelectasis. However, aspiration/infection could also be considered in the differential. Dictated by: Evelin Rivas M.D. on 06/10/2016 at 8:17 Approved by: Evelin Rivas M.D. on 06/10/2016 at 8:18
== END 2016-06-10 05:36 | disposition home or self-care (01) ==
LOC: SED 01:24
DX: O86.4 Pyrexia of unknown origin following delivery (principal)
CPT/HCPCS: 36415; 71020; 80053; 81000; 83605; 83690; 83735; 85025; 85610; 87040; 96360; 99284; J7030